=== PATIENT | female | born 1995 | race Caucasian/White ===

== ENCOUNTER 2020-01-22 15:40 | Inpatient (IN) | payer OTHER ==
[~2020-01-22] VITALS: Ht 177.8 cm; Wt 112.0 kg
--- OUTSIDE RECORDS SUMMARY | 2020-01-22 15:42 | XMS ---
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 Marielle has no Care Guidelines for this patient. Nydia VISIT COUNT (12 MO.) [address] Anthony Ousmane TOTAL 2 NOTE: Visits indicate total known visits. ED/UCC VISIT TRACKING (12 MO.) [facility] COMPLAINT: - GALL STONES 01/20/2020 07:17 [facility] [place] TYPE: Emergency DIAGNOSES: - Calculus of bile duct without cholangitis or cholecystitis wi - Calculus of gallbladder without cholecystitis without obstruc - abd pain INPATIENT VISIT TRACKING (12 MO.) No inpatient visits to display in this time frame [email or web address]
[2020-01-22] MEDS ORDERED: OMEPRAZOLE20 MG PO (16:01)
[2020-01-22] MEDS ORDERED: HYDROCODON-ACE1 EA10 PO (16:01)
[2020-01-22] MEDS ORDERED: REGLAN10 MG PO (16:02)
--- NOTE | 2020-01-23 12:28 | HP ---
[facility] [address], [place] [address] Signed ADMISSION DATE: 01/22/2020 REASON FOR ADMISSION: Acute calculous cholecystitis. HISTORY OF PRESENT ILLNESS: This 24-year-old obese white woman, is from [place], [place]. 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 On Sunday, she had rather severe and unrelenting right subcostal pain. She presented to the emergency room at the [facility] in [place], where she was evaluated including an ultrasound, which showed multiple gallstones. Her white count was said to be normal, but she did have tenderness upon probing of the right upper quadrant with ultrasound. She was advised to obtain a primary care provider, which she did not already have and discharged from the hospital. Improved with Dilaudid medication administered in the emergency room. The following day, she had increasing pain and called the emergency room, who advised her that she would still have no surgical intervention at that point. She made an appointment with a provider in [place] (I believe), who called my office anticipating an appointment, which was scheduled for early next week. The patient called my office later with recurrent persistent unrelenting pain and advised my office she was heading to the emergency room at [facility]. I called ahead to the emergency room and spoke with Dr. Lopez in anticipation of her visit. Dr. Lopez did see her and noted her to have tenderness in the right upper abdomen. Lab studies were affirmed to show an elevated white count previously of 12.0, now 9.8, the Chem profile essentially normal except for elevated AST and ALT (75 and 214 respectively) with an alkaline phosphatase at 112. Lipase was 20. Beta hCG 2 days ago in the emergency room was negative at [facility]. She does have a Norplant type control method as well. She has had nausea and rather severe pain. She recounts that the episode was brought on by some Georgian food that she cooked 2 days ago, enchiladas and other Georgian type food. The pain has been persistent and unrelieved. She has had some nausea, but no actual vomiting. PAST MEDICAL HISTORY: Electronically Signed By: KATIUSKA GARBER MD 01/23/20 1228 PATIENT NAME: SHADE WEEKS HISTORY AND PHYSICAL DATE OF : [birth year] REPORT #: [id number] PHYSICIAN: KATIUSKA GARBER MD PCP: NO PRIMARY CARE PHYSICIAN REPORT IS CONFIDENTIAL AND NOT TO BE RELEASED WITHOUT AUTHORIZATION [facility] [address] [place] [id number] Signed Significant for asthma. She also has obesity. PAST SURGICAL HISTORY: She denies prior surgical intervention. MEDICATIONS: At admission included Belcher, omeprazole, and Reglan. ALLERGIES: She has no known drug allergies. SOCIAL HISTORY: She does not smoke or drink alcohol. She lives with her fiancee of 5 years and 2 small children. Special note, she had biliary symptoms under 2 years ago and was anticipated to have cholecystectomy, but further evaluation was undertaken and she was never offered cholecystectomy after that according to her recollection. REVIEW OF SYSTEMS: She denies any shortness of breath or chest pain. She had no dysphagia. No dysuria. No hematuria. PHYSICAL EXAMINATION: GENERAL: This is a pleasant white woman, who is obese. VITAL SIGNS: Temperature is 98.1, pulse is 55, respirations 16, blood pressure 130/70. Her BMI is noted to be 35.4, she is 5 feet 10 inches tall, and 111 kg. NECK: Shows no thyromegaly or cervical adenopathy. Trachea is midline. CHEST: Clear. HEART: Regular without murmur. ABDOMEN: Scaphoid, obese and nondistended, but markedly obese. There is tenderness in right subcostal area. EXTREMITIES: Show no clubbing, cyanosis, or edema. LAB STUDIES: Today show white count 9.8, hematocrit 42.1, platelets 230,000. Chem profile shows a potassium of 3.5, otherwise normal except for liver enzymes previously noted. Bilirubin is normal at 0.5. Report of the [place] ultrasound was that of multiple gallstones. ASSESSMENT: She has clinical findings of acute calculous cholecystitis. She has had persistent pain for more than 48 hours and persistent tenderness. I do not believe a repeat ultrasound Electronically Signed By: KATIUSKA GARBER MD 01/23/20 1228 PATIENT NAME: SHADE WEEKS HISTORY AND PHYSICAL DATE OF : [birth year] REPORT #: [id number] PHYSICIAN: KATIUSKA GARBER MD PCP: NO PRIMARY CARE PHYSICIAN REPORT IS CONFIDENTIAL AND NOT TO BE RELEASED WITHOUT AUTHORIZATION [facility] [address] [place] [address] [place] [address] Signed would be of value at this point. I did discuss with her in great detail the pathophysiology of biliary disease in particular as it relates to gallstones. I have recommended cholecystectomy preferably by laparoscopic approach. The risks of bleeding, infection, bile duct injury, need for open procedure, failure to cure her symptoms, and need for other indicated procedures including common duct exploration were all reviewed with her in detail. PLAN: We will plan for additional fluid resuscitation tonight, IV antibiotics, DVT prophylaxis and plan for operation tomorrow morning. MD NIC Hamm/MARIJAL /[id number] cc: Checo Lpoez MD Copies: CHECO LOPEZ MD ~ Electronically Signed By: KATIUSKA GARBER MD 01/23/20 1228 PATIENT NAME: SHADE WEEKS HISTORY AND PHYSICAL DATE OF : [birth year] REPORT #: [id number] PHYSICIAN: KATIUSKA GARBER MD PCP: NO PRIMARY CARE PHYSICIAN REPORT IS CONFIDENTIAL AND NOT TO BE RELEASED WITHOUT AUTHORIZATION
--- NOTE | 2020-01-23 21:24 | OR ---
[facility] [address] [place], [place] [address] Signed DATE OF OPERATION: 01/23/2020 SURGEON: Katiuska Garber MD PREOPERATIVE DIAGNOSES: 1. Acute calculous cholecystitis. 2. Obesity. POSTOPERATIVE DIAGNOSES: 1. Acute calculous cholecystitis. 2. Obesity. 3. Distal common bile duct obstruction secondary to stone. PROCEDURES PERFORMED: 1. Laparoscopic cholecystectomy with laparoscopic transcystic common bile duct exploration. 2. Extraction of common bile duct stone with basket via flexible choledochoscopy. ANESTHESIA: General endotracheal; Katiuska PEREZ CRNA and local 10 mL of 0.25% Marcaine with epinephrine. INDICATION: This 24-year-old obese woman presented to the hospital in [facility] two days ago with right upper abdominal pain. She was found to have gall stones on gallbladder ultrasound and tenderness upon insertion of the probe in the right upper quadrant. She was treated with pain medication and discharged home. She had recurring symptoms and had been advised to obtain a PCP for surgical referral in the future. She did obtain a PCP, who referred her to our office for consideration of cholecystectomy. Her symptoms worsened and essentially never were gone and she had persistent nausea and right upper abdominal pain. She presented to the emergency room yesterday as her pain was significant and I had advised the emergency room physician, Dr. Lopez that should be on the way as I had been advised that she was going to the ER rather than waiting for our planned appointment. She was evaluated by Dr. Lopez and found to have tenderness in the right upper abdomen, but no sign of systemic toxicity, particularly. She did have an elevated liver enzyme, AST of 75, ALT of 214, normal alkaline phosphatase at 112. Lipase was 20. She has been admitted, given intravenous fluid resuscitation, IV antibiotics, Ancef, is now to undergo a laparoscopic cholecystectomy with intraoperative cholangiogram and Electronically Signed By: KATIUSKA GARBER MD 01/23/202123 PATIENT NAME: SHADE WEEKS OPERATIVE REPORT DATE OF : [birth year] REPORT #: [id number] PHYSICIAN: KATIUSKA GARBER MD PCP: NO PRIMARY CARE PHYSICIAN REPORT IS CONFIDENTIAL AND NOT TO BE RELEASED WITHOUT AUTHORIZATION [facility] [address] [place], [place] [address] Signed possible common duct exploration. She understands the risks of bleeding, infection, failure to cure her problems, bile duct injury, and other unforeseen complications and wishes to proceed. FINDINGS: Indeed the gallbladder was acutely inflamed. Despite her obesity, the liver did not show fatty infiltration. Initial cholangiogram showed complete obstruction of the distal common duct and ultimately she was found to have an obstructing common duct stone. This was removed with a laparoscopic transcystic duct common bile duct exploration including flexible choledochoscopy with extraction of the stone with a basket device. Completion cholangiogram showed free flow of contrast in the duodenum and no other abnormalities. DESCRIPTION OF PROCEDURE: The patient was brought to the operating room, given a general endotracheal anesthetic. Preoperative antibiotic Ancef had been given. Sequential compression device stockings used and heparin subcutaneously administered. After satisfactory general endotracheal anesthesia, the abdomen was prepared with a chlorhexidine solution and draped sterilely. An infraumbilical incision was made and using an open Onofre cannula technique pneumoperitoneum was achieved to a level of 14 mmHg of carbon dioxide gas. Intraabdominal inspection showed no sign of ascites or carcinomatosis. Liver appeared impressively normal despite her obesity. The gallbladder was acutely inflamed. Three additional trocars were placed in usual configuration in the subxiphoid, right midclavicular, and right anterior axillary line. The gallbladder was elevated cephalad as much as possible and retracted laterally. Using blunt electrocautery dissection, the edematous peritoneum over the infundibulum of the gallbladder was dissected free ultimately identifying well the cystic duct. Meticulous dissection was undertaken due to severe inflammation and edema in the infundibulum of the gallbladder. The cystic duct was somewhat dilated. A clip was applied across gallbladder cystic duct junction and A transverse choledochotomy made in the cystic duct. Egress of clear bile was noted. Using an Medley type cholangiocatheter flouroscopic intraoperative cholangiography was undertaken showing filling of the biliary tree with no emptying of the distal common duct. Although, a meniscus could not be seen to ascertain a stone for sure, certainly there was no evidence of drainage of the common duct. On that basis, an amp of glucagon was administered IV and after 5 minutes repeat cholangiogram undertaken, still showing no flow of contrast from the common bile duct into the duodenum. It was deemed likely she had an obstructing stone. A separate 5 mm black trocar was placed in alignment with the cystic duct. Through this Electronically Signed By: KATIUSKA GARBER MD 01/23/202123 PATIENT NAME: SHADE WEEKS OPERATIVE REPORT DATE OF : [birth year] REPORT #: [id number] PHYSICIAN: KATIUSKA GARBER MD PCP: NO PRIMARY CARE PHYSICIAN REPORT IS CONFIDENTIAL AND NOT TO BE RELEASED WITHOUT AUTHORIZATION [address] [address] Signed site, a flexible wire was passed down the cystic duct without impediment. Fluoroscopy was used to confirm the position of the wire across the ampulla into the duodenum. Quite clearly visible at this point was a distal common duct stone. An ERCP balloon catheter was then passed over the wire with the radiopaque markers aligned along and across the ampulla itself. Injection of the balloon was undertaken to dilate the ampulla. The balloon was decompressed and under fluoroscopic control, the catheter withdrawn to the cystic duct where it was gently dilated as well. The balloon was decompressed once again and the wire and balloon catheter removed. A flexible ureteral nephroscope was then obtained and with irrigation in the usual attachments including a separate camera the scope was carefully passed down the trocar once again in alignment with the cystic duct. Manipulation of the cystic duct was undertaken without problem. Grainy stone debris was noted in the distal duct and the scope was then passed through the ampulla into the duodenum. The scope was then withdrawn and inflammatory changes of the distal duct and ampulla were noted. The scope was further withdrawn and the offending obstructing stone was identified. There were two bits of stone actually. The flexible basket was passed down the choledochoscope and used to extract the stone material. The duct was thought to have been cleared and reintroduction of the flexible choledochoscope through the cystic duct was undertaken again showing a residual stone that was likely the offending obstructing stone now in the midportion of the common bile duct. This was additionally grasped with the basket and withdrawn through the cystic duct and offloaded. The scope was once again reintroduced and manipulation showed it to be passing more proximally. The hepatic bifurcation was noted to be normal. There was no sign of stones proximally. The scope was carefully withdrawn and unfurled then was passed distally all the way into the duodenum, showing complete clearance of the duct. The scope was removed and using the Medley type cholangiocatheter system once again, intraoperative cholangiography was again performed. This showed free flow of contrast in the duodenum without impediment. No sign of filling defect and no other abnormalities. The duct was now cleared fully. The catheter was removed and the cystic duct was triply clipped and additionally secured with a #0 PDS tie after transection of the cystic duct. The gallbladder was then dissected free in a retrograde fashion using electrocautery. The gallbladder was placed in an endobag and extracted through the infraumbilical port site showing no sign of neoplasm on the mucosa, but multiple variably shaped stones. Irrigation was undertaken in the subhepatic space. Hemostasis assured with electrocautery. There was no sign of bile leak. Excess irrigation fluid was suctioned free. Through a right-sided trocar site, a 7 mm flat Jasiel drain was placed in the subhepatic space and was secured to the skin with a nylon suture. The trocars were removed under direct visualization showing no sign of bleeding. The Electronically Signed By: KATIUSKA GARBER MD 01/23/202123 PATIENT NAME: SHADE WEEKS OPERATIVE REPORT DATE OF : [birth year] REPORT #: [id number] PHYSICIAN: KATIUSKA GARBER MD PCP: NO PRIMARY CARE PHYSICIAN REPORT IS CONFIDENTIAL AND NOT TO BE RELEASED WITHOUT AUTHORIZATION [address] [address] Signed infraumbilical fascial incision reapproximated with interrupted 0 Vicryl suture as well as a running 0 PDS suture. Irrigation was undertaken in the subcutaneous spaces and the skin was then closed with interrupted 3-0 Vicryl. Steri-Strips were applied. The drain was attached to bulb suction. The patient was ultimately extubated and transferred to the recovery room in good condition having suffered no complication. Sponge, needle, and instrument counts were reported as correct x3. The operation was somewhat prolonged, complicated and difficult on the basis of the common duct exploration, lasting operation from approximately 8 a.m. to 10 a.m. MD NIC Hamm/MODL /[id number] cc: Checo Lopez MD Copies: CHECO LOPEZ MD ~ Electronically Signed By: KATIUSKA GARBER MD 01/23/20 2124 PATIENT NAME: SHADE WEEKS OPERATIVE REPORT DATE OF : [birth year] REPORT #: [id number] PHYSICIAN: KATIUSKA GARBER MD PCP: NO PRIMARY CARE PHYSICIAN REPORT IS CONFIDENTIAL AND NOT TO BE RELEASED WITHOUT AUTHORIZATION
[2020-01-24] MEDS ORDERED: TYLENOL EXTRA500 MG PO (10:30)
[2020-01-24] MEDS ORDERED: IBUPROFEN600 MG PO (10:30)
[2020-01-24] MEDS ORDERED: OXYCODONE HCL5 MG PO (10:30)
--- NOTE | 2020-01-25 12:31 | DS ---
[facility] [address] [place], [place] [address] Signed ADMISSION DATE: 01/23/2020 DISCHARGE DATE: 01/24/2020 REASON FOR ADMISSION: Acute calculous cholecystitis. 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 On Sunday, she had rather severe and unrelenting right subcostal pain. She presented to the [facility] Emergency Room in [place], where she was evaluated, given gallbladder ultrasound, it showed multiple stones. She did have tenderness on exam according to documents I have. She was discharged to home, advised to find a primary care physician for consideration of referral to a surgeon. The patient had unrelenting pain, returned to the [facility] Emergency Room, who declined any further different intervention. She saw a provider at the [facility], who arranged a consultation in my office for next week. She called and advised her provider that she was having unrelenting pain and nausea and she was then advised to proceed directly to the emergency room at [facility]. She advised my office staff of this and I advised the ER to be ready for her and that I would be happy to see her if needed. She was evaluated by Dr. Donato confirming the clinical diagnosis of acute cholecystitis. Although her white count was not elevated, her liver enzymes, AST and ALT were elevated, and her lipase was normal. Alkaline phosphatase was 112, and her white count was normal at 9.8. She was directly admitted to my service for further evaluation and care for acute calculous cholecystitis. PERTINENT PHYSICAL EXAMINATION: GENERAL: Showed an obese white woman, who was uncomfortable. VITAL SIGNS: Temperature 98.1, pulse 55, respirations 16, blood pressure 130/70. BMI was 35.4. NECK: Normal. CHEST: Clear. HEART: Regular without murmur. ABDOMEN: Scaphoid, obese and nondistended, but markedly tender in the right subcostal area. HOSPITAL COURSE: She was fluid resuscitated, given intravenous antibiotics including Ancef and other measures. On January 23, 2020, she underwent laparoscopic cholecystectomy with cholangiogram. Cholangiogram showed NO FLOW of contrast into the duodenum, confirming Electronically Signed By: KATIUSKA GARBER MD 01/25/20 1231 PATIENT NAME: SHADE WEEKS DISCHARGE SUMMARY DATE OF : [birth year] REPORT #: [id number] PHYSICIAN: KATIUSKA GARBER MD PCP: NO PRIMARY CARE PHYSICIAN REPORT IS CONFIDENTIAL AND NOT TO BE RELEASED WITHOUT AUTHORIZATION [facility] [address] [place], [place] [address] Signed complete obstruction of the bile duct. On that basis, a laparoscopic common duct exploration was undertaken (transcystic duct technique) allowed for flexible choledochoscopy and removal of an obstructing stone and some stone debris in the distal common duct. Notably, the scope was ultimately able to pass into the duodenum and the duct was confirmed clear endoscopically as well as by completion cholangiogram. Postoperatively, she was given a regular diet and oral pain medications which she well tolerated. By time of discharge, she is ambulating well, tolerating a regular diet as well as oral analgesics. A drain was placed at time of complex laparoscopic cholecystectomy and common duct exploration showed no sign of bile leak or other abnormalities. It was removed on first postoperative day. She was discharged home in improved condition. FOLLOWUP PLANS: She will return to see me in approximately 4 weeks, mindful of the current viral pandemic altering usual patterns of care. She can call me anytime if there are problems. She will maintain a lifting restriction of 20 pounds for the next 2 weeks. She is instructed to walk on a daily basis. She is permitted to shower tomorrow and should leave Steri-Strips on. DISCHARGE MEDICATIONS: 1. Ibuprofen 6 600 mg p.o. q.6 hours as needed for pain #60 refill one. 2. Oxycodone 5 mg 5-10 mg p.o. q.4 hours as needed for pain #20. 3. Tylenol Extra Strength 500 mg two tablets p.o. q.6 hours as needed for pain #60 refill zero. 4. She will continue her preoperative medication omeprazole 20 mg as daily for reflux and she has largely finished her Sapphire medication that she had previously. She will discontinue Reglan. DISCHARGE DIAGNOSES: 1. Acute calculous cholecystitis with common duct obstruction related to choledocholithiasis. 2. Status post laparoscopic cholecystectomy with laparoscopic common duct exploration and transcystic duct. Flexible choledochoscopy with extraction of distal common bile duct stone January 23, 2020. 3. Obesity. 4. Reflux disease. 5. Possible latex allergy. Electronically Signed By: KATIUSKA GARBER MD 01/25/20 1231 PATIENT NAME: SHADE WEEKS DISCHARGE SUMMARY DATE OF : [birth year] REPORT #: [id number] PHYSICIAN: KATIUSKA GARBER MD PCP: NO PRIMARY CARE PHYSICIAN REPORT IS CONFIDENTIAL AND NOT TO BE RELEASED WITHOUT AUTHORIZATION [address] [address] Signed MD NIC Hamm/MODL /[id number] cc: [facility] Copies: ~ Electronically Signed By: KATIUSKA GARBER MD 01/25/20 1231 PATIENT NAME: SHADE WEEKS DISCHARGE SUMMARY DATE OF : [birth year] REPORT #: [id number] PHYSICIAN: KATIUSKA GARBER MD PCP: NO PRIMARY CARE PHYSICIAN REPORT IS CONFIDENTIAL AND NOT TO BE RELEASED WITHOUT AUTHORIZATION
--- NOTE | 2020-01-26 18:05 | PATH ---
[facility] [address] [place], [place] [address] Signed SPECIMEN(S): A GALLBLADDER AND STONES SPECIMEN SOURCE: A. GALLBLADDER AND STONES CLINICAL HISTORY: Cholecystitis, acute calculus. FINAL PATHOLOGIC DIAGNOSIS: Gallbladder, cholecystectomy: - Chronic cholecystitis. - Cholelithiasis. - No evidence of neoplasia. ALYSSAK:jorge:C2NR MICROSCOPIC EXAMINATION: Histologic sections of all submitted blocks are examined by light microscopy. These findings, together with the gross examination, support the pathologic diagnosis. GROSS DESCRIPTION: The specimen, labeled "MR, A," and designated on the requisition "gallbladder and gallstones," is received in formalin and consists of Specimen: Previously opened gallbladder. Dimensions: 7.0 x 3.0 x 2.5 cm. Serosa: Violaceous and smooth with attached adipose tissue. Cystic Duct: Unobstructed. Calculi: Multiple yellow-green faceted calculi measuring 3.5 x 3.0 x 0.5 cm in aggregate. Mucosa: Pale yellow-green and velvety. Wall thickness: Up to 0.5 cm. Lymph node: No pericystic lymph nodes are grossly identified. Additional: None. Claims Investigator sections are submitted in cassette (A1). AT (under the direct supervision of a pathologist) The Gross Description was prepared using a voice recognition system. The report was reviewed for accuracy; however, sound-alike word errors, addition and/or deletions may occur. If there is any question about this report, please contact Client Services. PERFORMING LABORATORY: PATIENT NAME: SHADE WEEKS PATHOLOGY DATE OF : [birth year] REPORT #: [id number] PHYSICIAN: PARIS WATERMAN PCP: NO PRIMARY CARE PHYSICIAN REPORT IS CONFIDENTIAL AND NOT TO BE RELEASED WITHOUT AUTHORIZATION [facility] [address], [place] [address] Signed The technical component was performed by [employer], [address] [place] [address] (Shoe Designer: Mayra Borrego MD; CLIA# [id number]). Professional interpretation was performed by [employer], [facility], [address] [place] [id number] (CLIA# [id number]). Diagnostician: Pj Barlow MD Pathologist Electronically Signed 01/26/2020 Copies: ~ PATIENT NAME: SHADE WEEKS PATHOLOGY DATE OF : [birth year] REPORT #: [id number] PHYSICIAN: PARIS WATERMAN PCP: NO PRIMARY CARE PHYSICIAN REPORT IS CONFIDENTIAL AND NOT TO BE RELEASED WITHOUT AUTHORIZATION
== END 2020-01-24 11:25 | disposition home or self-care (01) | DRG 419 ==
LOC: ED 15:40 → MS 15:42
PROVIDERS: ADMIT Surgery
PROC: 0FC94ZZ Extirpation of Matter from Common Bile Duct, Percutaneous Endoscopic Approach (ICD-10-PCS; 2020-01-23)
PROC: 0FT44ZZ Resection of Gallbladder, Percutaneous Endoscopic Approach (ICD-10-PCS; principal; 2020-01-23 06:27)
DX: K80.43 Calculus of bile duct with acute cholecystitis with obstruction (principal); E66.9 Obesity, unspecified; K21.9 Gastro-esophageal reflux disease without esophagitis; Z79.899 Other long term (current) drug therapy; Z91.040 Latex allergy status; Z68.35 Body mass index [BMI] 35.0-35.9, adult
CPT/HCPCS: 74300; 80053; 83690; 85025; 96361; 96372; 96375; 96376; C1726; C1769; C1894; G0378; J0690; J1100; J1610; J1644; J1885; J2250; J2270; J2405; J2704; J3010; J3480; J7030; J7121; Q9967

== ENCOUNTER 2024-10-01 02:32 | Inpatient (IN) | payer OTHER ==
[~2024-10-01] VITALS: Ht 171.5 cm; Wt 107.0 kg
[~2024-10-01 02:32] MED LIST: CALCIUM CARBONATE 500 MG CHEW PO PRN; HYDROCODON-ACE1 EA10 PO; IBUPROFEN600 MG PO; LACTATED RINGER'S 1,000 ML IV SCH; MAGNESIUM HYDROXIDE/AL HYDROX 30 ML CUP PO PRN; OMEPRAZOLE20 MG PO; OXYCODONE HCL5 MG PO; REGLAN10 MG PO; TYLENOL EXTRA500 MG PO; miSOPROStoL 25 MCG TAB PV SCH
[2024-10-01] MEDS ORDERED: OXYTOCIN/DEXTROSE 5% 20 UNITS/100 ML BAG IV SCH (03:00)
[2024-10-01 03:13] VITALS: BP 127/77
[2024-10-01 03:35] LABS: AMPHETAMINES, URINE NEGATIVE (NEGATIVE); BARBITURATES, URINE NEGATIVE (NEGATIVE); BENZODIAZEPINE, URINE NEGATIVE (NEGATIVE); BUPRENORPHINE, URINE NEGATIVE (NEGATIVE); CANNABINOID, URINE POSITIVE (NEGATIVE); COCAINE, URINE NEGATIVE (NEGATIVE); ECSTASY, URINE NEGATIVE (NEGATIVE); FENTANYL, URINE NEGATIVE (NEGATIVE); METHADONE, URINE NEGATIVE (NEGATIVE); OPIATES, URINE NEGATIVE (NEGATIVE); OXYCODONE, URINE NEGATIVE (NEGATIVE); PHENCYCLIDINE, URINE NEGATIVE (NEGATIVE)
[2024-10-01 03:39] LABS: HEMATOCRIT 32.9 % (35.0-50.0); HEMOGLOBIN 11.5 g/dL (12.0-18.0); MCH 31.1 (27-36); MCHC 34.9 g/dl (30-36); MCV 89.2 fl (81-99); RBC 3.69 M/ul (4.3-5.7); RDW 12.8 (10.5-15.0)
[2024-10-01 04:14] LABS: ABO B; ANTIBODY SCREEN NEGATIVE; RH POSITIVE
[2024-10-01 12:21] LABS: ALBUMIN 2.5 g/dL (3.4-5.0); ALBUMIN/GLOBULIN RATIO 0.69 (1.1-2.4); ANION GAP 16.1 (7-21); BILIRUBIN, TOTAL 0.5 ng/dL (0.2-1.0); BUN/CREATININE RATIO 10.52 (6.0-28.6); CALCIUM 8.8 mg/dL (8.5-10.1); CREATININE, SERUM 0.57 mg/dL (0.55-1.02); POTASSIUM 4.1 mmol/L (3.5-5.1); PROTEIN, TOTAL 6.1 g/dL (6.4-8.2)
[2024-10-01] MEDS ORDERED: fentaNYL citrate 100 MCG/2 ML VIAL ONE (15:42)
[2024-10-01] MEDS ORDERED: ePHEDrine sulfate 5 MG/ML SYRINGE IV PRN (15:45)
[2024-10-01] MEDS ORDERED: ROPIVACAINE 0.2% 200 ML BAG EPIDURAL SCH (15:45)
[2024-10-01] MEDS ORDERED: LACTATED RINGER'S 2,000 ML IV ONE (15:45)
[2024-10-01] MEDS ORDERED: LACTATED RINGER'S 500 ML IV PRN (15:45)
[2024-10-01] MEDS ORDERED: OXYTOCIN/0.9 % SODIUM CHLORIDE 500 ML IV SCH (18:45)
[2024-10-02] MEDS ORDERED: ACETAMINOPHEN 325 MG TAB PO PRN (00:15)
[2024-10-02] MEDS ORDERED: IBUPROFEN 600 MG TAB PO PRN (00:15)
[2024-10-02] MEDS ORDERED: MAGNESIUM HYDROXIDE 30 ML UDC PO PRN (00:15)
[2024-10-02] MEDS ORDERED: OXYTOCIN/0.9 % SODIUM CHLORIDE 500 ML IV SCH (00:15)
[2024-10-02] MEDS ORDERED: MAGNESIUM HYDROXIDE/AL HYDROX 30 ML CUP PO PRN (00:15)
[2024-10-02] MEDS ORDERED: LIDOCAINE 2% VISCOUS 6 ML SYR TOP ONE ×2 (00:15)
[2024-10-02] MEDS ORDERED: WITCH HAZEL/GLYCERIN 1 EA PAD TOP PRN (00:15)
[2024-10-02] MEDS ORDERED: CALCIUM CARBONATE 500 MG CHEW PO PRN (00:15)
[2024-10-02] MEDS ORDERED: SENNOSIDES/DOCUSATE 1 EA TAB PO SCH (09:00)
[2024-10-02] MEDS ORDERED: OXYCODONE HCL 5 MG TAB PO PRN (12:00)
[2024-10-02] MEDS ORDERED: ACETAMINOPHEN 500 MG TAB PO PRN (12:00)
== END 2024-10-03 11:55 | disposition home or self-care (01) | DRG 806 ==
LOC: FBC 02:32
PROVIDERS: Advanced Practice Midwife; ADMIT Student in an Organized Health Care Education/Training Program; ATTEND Student in an Organized Health Care Education/Training Program
PROC: 10E0XZZ Delivery of Products of Conception, External Approach (ICD-10-PCS; principal; 2024-10-01)
PROC: 3E0DXGC Introduction of Other Therapeutic Substance into Mouth and Pharynx, External Approach (ICD-10-PCS; 2024-10-01)
PROC: 3E0R3BZ Introduction of Anesthetic Agent into Spinal Canal, Percutaneous Approach (ICD-10-PCS; 2024-10-01)
PROC: 00HU33Z Insertion of Infusion Device into Spinal Canal, Percutaneous Approach (ICD-10-PCS; 2024-10-01)
DX: O99.344 Other mental disorders complicating childbirth (principal); F84.0 Autistic disorder; Z37.0 Single live birth; F41.9 Anxiety disorder, unspecified; O99.334 Smoking (tobacco) complicating childbirth; F17.200 Nicotine dependence, unspecified, uncomplicated; O99.214 Obesity complicating childbirth; Z3A.39 39 weeks gestation of pregnancy; E66.01 Morbid (severe) obesity due to excess calories; Z91.040 Latex allergy status
CPT/HCPCS: 01960; 36415; 80053; 80307; 84550; 85027; 86850; 86900; 86901; A9270; J2590; J3010